=== PATIENT | female | born 1965 | race Caucasian/White ===

== ENCOUNTER 2022-11-29 16:06 | Emergency (ER) | payer OTHER ==
[~2022-11-29] VITALS: Ht 165.1 cm; Wt 96.3 kg
[2022-11-29 18:50] VITALS: BP 137/73
== END 2022-11-29 18:52 | disposition home or self-care (01) ==
LOC: M ED 16:06
DX: S80.11XA Contusion of right lower leg, initial encounter (principal); M54.30 Sciatica, unspecified side; Z88.2 Allergy status to sulfonamides; Z88.8 Allergy status to other drugs, medicaments and biological substances; Z79.891 Long term (current) use of opiate analgesic; Z79.810 Long term (current) use of selective estrogen receptor modulators (SERMs)

== ENCOUNTER 2023-06-29 09:39 | Day surgery (SDC) | payer OTHER ==
[~2023-06-29] VITALS: Ht 165.1 cm; Wt 93.0 kg
[~2023-06-29 09:39] MED LIST: NS 1,000 ML IV ONE
[2023-06-29] MEDS ORDERED: propofoL 200 MG/20 ML VIAL As Ordered ONE (10:50)
[2023-06-29 10:52] VITALS: TEMP 97.4
[2023-06-29 11:10] VITALS: BP 130/82; O2SAT 96
== END 2023-06-29 11:19 | disposition home or self-care (01) ==
LOC: M OPP 09:39
PROVIDERS: ATTEND Surgery
DX: Z12.11 Encounter for screening for malignant neoplasm of colon (principal); Z86.010 Personal history of colon polyps; K64.0 First degree hemorrhoids; I44.7 Left bundle-branch block, unspecified; G47.30 Sleep apnea, unspecified; Z99.89 Dependence on other enabling machines and devices; Z79.1 Long term (current) use of non-steroidal anti-inflammatories (NSAID); Z79.891 Long term (current) use of opiate analgesic; Z88.2 Allergy status to sulfonamides; Z88.8 Allergy status to other drugs, medicaments and biological substances